=== PATIENT | male | born 1955 | race Caucasian/White ===

== ENCOUNTER → 2019-04-12 09:47 | Outpatient (CLI) | payer MEDICARE, OTHER, SELFPAY ==
--- NOTE | 2019-04-12 09:50 | DI.US.S_ITS ---
PROCEDURE: US SCROTUM INDICATIONS: SCROTAL PAIN, HISTORY OF VARICOCELE TECHNIQUE: Real-time scanning was performed of the scrotum and testicles, with image documentation. Color and pulse Doppler interrogation was performed of both testicles. COMPARISON: None. FINDINGS: Right: Testicle is normal in size at 1.5 x 2.6 x 3.4 cm, and homogenous in echotexture. Epididymis is normal in overall size and morphology. No hydrocele but there is a small right-sided varicocele. Overlying scrotal skin is normal in thickness. Left: Testicle is normal in size at 1.7 x 2.0 x 3.3 cm, and homogeneous in echotexture. Epididymis is normal in overall size and morphology. No hydrocele but there is a small left-sided varicocele. Overlying scrotal skin is normal in thickness. Note is made of an intratesticular cyst measuring 2 x 2 by 3 mm. Doppler: Color and pulse Doppler demonstrate normal and symmetric arterial flow in both testicles. IMPRESSION: Small bilateral varicoceles, no testicular or epididymal inflammation or hydrocele bilaterally. Dictated by: Sidney Boyle M.D. on 04/12/2019 at 14:11 Approved by: Sidney Boyle M.D. on 04/12/2019 at 14:13
== END ==
PROVIDERS: PCP Family Medicine; Visit Provider Nurse Practitioner Family
DX: N50.82 Scrotal pain (principal); I86.1 Scrotal varices
CPT/HCPCS: 76870

== ENCOUNTER → 2020-03-19 09:52 | Outpatient (CLI) | payer MEDICARE, OTHER, SELFPAY ==
--- NOTE | 2020-03-19 09:53 | DI.US.S_ITS ---
PROCEDURE: US ABD AORTA ANEURYSM SCREEN INDICATIONS: SCREEN TECHNIQUE: Real time scanning was performed of the aorta and iliac arteries, with image documentation. COMPARISON: None. FINDINGS: Aorta: Proximal aortic diameter measures 1.8 cm. Mid-aorta measures 1.8 cm. Distal aortic diameter is 1.6 cm. Iliac arteries: Right common iliac artery measures 1.1 cm. Left common iliac artery measures 1.2 cm. IMPRESSION: No sonographic evidence of abdominal aortic aneurysm. Dictated by: Maryann Nieves MD, PhD on 03/19/2020 at 16:24 Approved by: Maryann Nieves MD, PhD on 03/19/2020 at 16:25
== END ==
PROVIDERS: PCP Nurse Practitioner Family; Referring Provider Nurse Practitioner Family; Visit Provider Nurse Practitioner Family
DX: Z13.6 Encounter for screening for cardiovascular disorders (principal)
CPT/HCPCS: 76706

== ENCOUNTER 2025-01-30 06:08 | Day surgery (SDC) | payer MEDICARE, OTHER, SELFPAY ==
[2025-01-24 13:16] VITALS: BMI 25.2
[2025-01-30] VITALS (8 sets, daily range): BP systolic 135–158; BP diastolic 75–91; PULSE 81–96; RESP 16–20; TEMP 36.6–36.8; O2SAT 92–100; BMI 25.2
[2025-01-30] MEDS: LACTATED RINGERS 1,000 ML 42 ML IV (07:09)
[2025-01-30] MEDS: ACETAMINOPHEN 325 MG TABLET 975 MG PO (07:11)
--- NOTE | 2025-01-30 07:38 | PM.PREOP ---
Pre-operative Note COVID-19 COVID-19 status: Not tested Interval Note History & Physical reviewed/Exam performed by Physician: Yes Changes to H&P: No ASA Class (for procedural sedation): II
--- NOTE | 2025-01-30 08:13 | SUR.OPER ---
Supine on pink-padded OR bed, head on pillow, arms padded with purple foam, iv sites padded and tucked at sides, legs uncrossed, safety belt at thigh, tape over blanket over lower legs .
--- NOTE | 2025-01-30 09:57 | P.OP_ITS ---
Operative Date/Time/Diagnoses Date of procedure: 01/30/25 Time of procedure: 09:57 Pre-op diagnosis: Right inguinal hernia Post-op diagnosis: same Procedure & Clinicians Procedure: Robotic right inguinal hernia repair with mesh Same procedure(s) as scheduled: Yes Surgeon: Solomon Rivera Click Yes if Unassisted: Yes Anesthesia Type: General Operative Notes Findings: Indirect right inguinal hernia Applied: none Estimated Blood Loss (mL): 5 Procedure in detail: The patient was given preoperative antibiotics. The patient was brought to the operating room, placed on the table in the supine position with the arms tucked and general anesthesia was induced. The abdomen was prepped and draped in the usual fashion. A time-out was performed. A 1 cm transverse incision was created superior to the umbilicus and dissection was carried down to the fascia. The fascia was grasped with a Addison clamp to elevate the abdominal wall. The fascia was scored transversely with cautery. A Peon clamp was used to delgado the peritoneum. The 12 mm robotic port was placed and the abdomen was insufflated to 15 mmHg. The camera was inserted, there was no evidence of any injury from the entry. There was an indirect right inguinal hernia. 8 mm ports were placed under direct vision in the mid left and mid right abdomen. The patient was positioned in Trendelenburg. The robot was docked. We created right peritoneal flap. The peritoneum was dissected off the right cord structures and the Chad's ligament was exposed. An extra-large right Bard me sh was brought in and placed over the defect with the medial edge overlapping the pubic symphysis. We then closed the peritoneal flap with a running 3-0 barbed suture. We took one last look around the abdomen and saw no other abnormalities. The suture was removed and accounted for. The robot was undocked. The 8 mm ports were removed under direct vision. The abdomen was desufflated. The 12 mm port was removed. Additional local was injected into the fascia and the fascial incision was closed with 2 interrupted 0 Vicryl sutures. The skin incisions were closed with 4 Monocryl, Steri-Strips and Band- Aids. Complications: none Post-operative Condition: stable Disposition: PACU
--- NOTE | 2025-01-30 11:32 | SUR.PHASEII ---
Patient Bladder scanned for 24-50 ml. He is requesting to fill bladder via IV fluids and PO water to re check and make sure he can void before leaving.
[2025-01-30] MEDS: LACTATED RINGERS 1,000 ML 1000 ML IV (11:34)
== END 2025-01-30 12:43 | disposition home or self-care (01) ==
PROVIDERS: Referring Provider Surgery; Visit Provider Surgery
PROC: 0YQ54ZZ Repair Right Inguinal Region, Percutaneous Endoscopic Approach (ICD-10-PCS; CPT 49650; principal; 2025-01-30 07:45)
DX: K40.90 Unilateral inguinal hernia, without obstruction or gangrene, not specified as recurrent (principal)
CPT/HCPCS: 49650; S2900; C1781; J0330; J0690; J1100; J1885; J2405; J2704; J3010; J3490